=== PATIENT | male | born 1995 | race Caucasian/White ===

== ENCOUNTER 2021-09-13 16:32 | Emergency (ER) | payer OTHER ==
[~2021-09-13] VITALS: Ht 170.2 cm; Wt 81.8 kg
[2021-09-13 16:59] VITALS: BP 167/107
--- NOTE | 2021-09-13 17:48 | PHYS DOC ---
Past History Past Surgical History: No Surgical History (ENRIQUETA STEEL APRN) Alcohol Use: None (ENRIQUETA STEEL APRN) General Adult EDM: Chief Complaint: HAND PROBLEM HPI: HPI: Patient is a 26-year-old male who presents with left hand pain and swelling. Patient states that he punched plexiglass trying to punch a guard. Patient has full range of motion but produces pain. Sensation intact. Denies getting anything for pain prior to arrival. (ENRIQUETA STEEL APRN) Review of Systems: Review of Systems: ROS At least 10 ROS systems have been reviewed and are negative except as documented in the HPI. General: Negative except as outlined in HPI above. Skin: Negative except as outlined in HPI above. HEENT: Negative except as outlined in HPI above. Neck: Negative except as outlined in HPI above. Respiratory: Negative except as outlined in HPI above.. Cardiovascular: Negative except as outlined in HPI above. Abdomen: Negative except as outlined in HPI above. : Negative except as outlined in HPI above. Back/MSK: Negative except as outlined in HPI above. Neuro: Negative except as outlined in HPI above. Psych: Negative except as outlined in HPI above. (ENRIQUETA STEEL APRN) Physical Exam: PE: Constitutional: Well developed, well nourished, no acute distress, non-toxic appearance. [] HENT: Normocephalic, atraumatic, bilateral external ears normal, oropharynx moist, no oral exudates, nose normal. [] Eyes: PERRLA, EOMI, conjunctiva normal, no discharge. [] Neck: Normal range of motion, no tenderness, supple, no stridor. [] Cardiovascular:Heart rate regular rhythm, no murmur [] Lungs & Thorax: Bilateral breath sounds clear to auscultation [] Abdomen: Bowel sounds normal, soft, no tenderness, no masses, no pulsatile masses. [] Skin: Warm, dry, no erythema, no rash. [] Back: No tenderness, no CVA tenderness. [] Extremities: No tenderness, no cyanosis, no clubbing, Left handswelling to outer aspect of hand, radial pulses intact, sensations intact, full range of motion Neurologic: Alert and oriented X 3, normal motor function, normal sensory function, no focal deficits noted. [] Psychologic: Affect normal, judgement normal, mood normal. [] (ENRIQUETA STEEL APRN) Current Patient Data: Vital Signs: Vital Signs Date Time Temp Pulse Resp B/P (MAP) Pulse Ox O2 Delivery O2 Flow Rate FiO2 09/13/21 16:59 98.3 69 16 167/107 (127) 100 (ENRIQUETA STEEL APRN) EKG: EKG: [] (ENRIQUETA STEEL APRN) Radiology/Procedures: Radiology/Procedures: []XR HAND_LEFT 3 VIEWS History: Reason: injury / Spl. Instructions: / History: Pain Technique: 3 views left hand Comparison: None. Findings: Acute fifth metacarpal fracture with anterior angulation. There is adjacent soft tissue swelling. Impression: 1. Acute fifth metacarpal fracture with anterior angulation. Electronically signed by: Nba Howell DO (09/13/2021 6:06 PM) [facility] (ENRIQUETA STEEL APRN) Heart Score: C/O Chest Pain: No Risk Factors: Risk Factors: DM, Current or recent (<one month) smoker, HTN, HLP, family history of CAD, obesity. Risk Scores: Score 0 - 3: 2.5% MACE over next 6 weeks - Discharge Home Score 4 - 6: 20.3% MACE over next 6 weeks - Admit for Clinical Observation Score 7 - 10: 72.7% MACE over next 6 weeks - Early Invasive Strategies (ENRIQUETA STEEL APRN) Course & Med Decision Making: Course & Med Decision Making Pertinent Labs and Imaging studies reviewed. (See chart for details) [] 26-year-old male presents with left hand pain and swelling after punching plexiglass. X-ray of left hand ordered to rule out fracture. X-ray shows Acute fifth metacarpal fracture with anterior angulation. Discussed with patient all findings and diagnostics. Patient placed in splint. Patient tolerated procedure. Advised to take ibuprofen for pain and follow-up with Ortho. Educated on RICE. Patient voiced understanding and agreement with plan. (ENRIQUETA STEEL APRN) Dragon Disclaimer: Dragon Disclaimer: This electronic medical record was generated, in whole or in part, using a voice recognition dictation system. (ENRIQUETA STEEL APRN) Departure Departure: Impression: Primary Impression: Boxers fracture Qualified Codes: S62.339A - Displaced fracture of neck of unspecified metacarpal bone, initial encounter for closed fracture Disposition: HOME / SELF CARE / HOMELESS Condition: STABLE Referrals: PCP,NO (PCP) Patient Instructions: Boxer's Fracture Additional Instructions: Rest, use ice, elevate to help with swelling. Sending you home with prescription for hydrocodone until you can be seen by your PCP. Also take ibuprofen for breakthrough pain. Please follow-up with your PCP in the next few days. Return to the emergency room with worsening symptoms or concerns. EMERGENCY DEPARTMENT GENERAL DISCHARGE INSTRUCTIONS Thank you for coming to [facility] (ED) today and trusting us with you care. We trust that you had a positivie experience in our Emergency Department. If you wish to speak to the department management, you may call the director at [phone]. YOUR FOLLOW UP INSTRUCTIONS ARE FOLLOWS: 1. Do you have a private Doctor? If you do not have a private doctor, please ask for a resource list of physicians or clinics that may be able to assist you with follow up care. 2. The Emergency Physician has interpreted your x-rays. The X-Ray specialist will also review them. If there is a change in the findings, you will be notified in 48 hours when at all possible. 3. A lab test or culture has been done, your results will be reviewed and you will be notified if you need a change in treatment. ADDITIONAL INSTRUCTIONS AND INFORMATION: 1. Your care today has been supervised by a physician who is specially trained in emergency care. Many problems require more than one evaluation for a complete diagnosis and treatment. We recommend that you schedule your follow up appointment as recommended to ensure complete treatment of you illness or injury. If you are unable to obtain follow up care and continue to have a problem, or if your condition worsens, we recommend that you return to the ED. 2. We are not able to safely determine your condition over the phone nor are we able to give sound medical advice over the phone. For these safety reasons, if you call for medical advice we will ask you to come to the ED for further evaluation. 3. If you have any questions regarding these discharge instructions please call the ED at [phone]. SAFETY INFORMATION: In the interest of safety, wellness, and injury prevention; we encourage you to wear your sealbelt, if you smoke; quite smoking, and we encourage family to use a protective helmet for bicycling and other sporting events that present an increased risk for head injury. IF YOUR SYMPTOMS WORSEN OR NEW SYMPTOMS DEVELOP, OR YOU HAVE CONCERNS ABOUT YOUR CONDITION; OR IF YOUR CONDITION WORSENS WHILE YOU ARE WAITING FOR YOUR FOLLOW UP APPOINTMENT; EITHER CONTACT YOUR PRIMARY CARE DOCTOR, THE PHYSICIAN WHOSE NAME AND NUMBER YOU WERE GIVEN, OR RETURN TO THE ED IMMEDIATELY. Attending Signature Attending Signature I have participated in the care of this patient and I have reviewed and agree with all pertinent clinical information above including history, exam, and recommendations. (REID PARKER MD) ENRIQUETA STEEL APRN Sep 13, 2021 17:48 REID PARKER MD Sep 15, 2021 08:24
--- NOTE | 2021-09-13 18:08 | RAD ---
XR HAND_LEFT 3 VIEWS History: Reason: injury / Spl. Instructions: / History: Pain Technique: 3 views left hand Comparison: None. Findings: Acute fifth metacarpal fracture with anterior angulation. There is adjacent soft tissue swelling. Impression: 1. Acute fifth metacarpal fracture with anterior angulation. Electronically signed by: Nba Howell DO (09/13/2021 6:06 PM) [facility]
== END 2021-09-13 18:50 | disposition home or self-care (01) ==
LOC: ER 16:32
DX: S62.337A Displaced fracture of neck of fifth metacarpal bone, left hand, initial encounter for closed fracture (principal); W22.8XXA Striking against or struck by other objects, initial encounter; Y93.89 Activity, other specified; Y92.89 Other specified places as the place of occurrence of the external cause; Y99.8 Other external cause status
CPT/HCPCS: 29125; 73130; 99283